=== PATIENT | male | born 1940 | race Caucasian/White ===

== ENCOUNTER → 2016-06-12 | Outpatient (CLI) | payer MEDICARE ==
[~2016-06-12] MED LIST: ACET-685 PO; ASPI-484 PO; CLOP75TA PO; DOCU100C28 PO; EZET10TA18 PO; FLUD0.1T PO; GABA100C7 PO; GLIM4TAB2 PO; INSU100I13 SQ; LEVO200T5 PO; MIDO10TA PO; MIDO2.5T PO; MIGL25TA PO; ONDA8TAB16 PO; POTA10TA10 PO; ROSU40TA PO
== END | disposition home or self-care (01) ==
LOC: LAB 09:35
PROVIDERS: ATTEND Internal Medicine Cardiovascular Disease
DX: E78.2 Mixed hyperlipidemia (principal)
CPT/HCPCS: 36415; 80061; 80076

== ENCOUNTER → 2016-09-30 | Outpatient (CLI) | payer MEDICARE ==
[~2016-09-30] MED LIST changes: -DOCU100C28 PO; -EZET10TA18 PO; +EZET10TA3 PO; +[UNRECOGNIZED DRUG - CODE] PO
[2016-09-30 08:04] LABS: CALCIUM 8.6 mg/dL (8.4-10.5); CARBON DIOXIDE 25.7 mmol/L (20.0-32); GLUCOSE 54 mg/dL (70-110)
== END | disposition home or self-care (01) ==
LOC: LAB 07:02
PROVIDERS: ATTEND Internal Medicine Cardiovascular Disease
DX: N28.89 Other specified disorders of kidney and ureter (principal); I10 Essential (primary) hypertension
CPT/HCPCS: 36415; 80048